=== PATIENT | male | born 1940 | race Caucasian/White ===

== ENCOUNTER 2016-04-22 17:45 | Inpatient (IN) | payer OTHER ==
[2016-04-22 20:03] LABS: MANUAL DIFF NEEDED? NO
[2016-04-22 20:06] LABS: BASO% 0.6 % (0.0-0.8); EOS% 1.9 % (0.0-10.0); HEMATOCRIT 39.7 % (42.0-52.0); HEMOGLOBIN 12.6 g/dL (14.0-18.0); IMM GRAN# 0.02 X1000 (0.0-0.04); IMM GRAN% 0.2 % (0.0-0.5); LYMPH# 1.86 X1000 (1.2-3.4); LYMPH% 17.9 % (20.5-51.1); MCH 27.2 PG (27-31); MCHC 31.7 g/dL (33-37); MCV 85.7 FL (81-99); MONO# 0.84 X1000 (0.11-0.59); MONO% 8.1 % (1.7-9.3); MPV 10.7 FL (7.4-10.4); NEUT% 71.3 % (42.2-75.2); PLT 233 X1000 (130-400); RBC 4.63 XMIL (4.7-6.1)
[2016-04-22 20:14] LABS: INR 1.01; PROTIME 10.7 Seconds (9.2-11.7)
[2016-04-22 20:31] LABS: ALBUMIN 3.5 g/dL (3.5-5.0); CALCIUM 8.1 mg/dL (8.8-10.2); MAGNESIUM 1.8 mg/dL (1.5-2.7); POTASSIUM 4.5 mmol/L (3.5-5.1); TOTAL BILIRUBIN 0.43 mg/dL (0.20-1.00); TOTAL PROTEIN 6.5 g/dL (6.3-8.3)
[2016-04-22] MEDS ORDERED: LASIX IV ONE (20:42)
[2016-04-22] MEDS ORDERED: PHENERGAN WITH CODEINE LIQUID PO ONE (20:47)
[2016-04-22] MEDS ORDERED: ALBUTEROL NEB INH ONE (20:47)
--- NOTE | 2016-04-22 20:50 | PROVIDER DOCUMENTATION ---
HPI-Respiratory General <Brenden Jarquin - Last Filed: 04/22/16 21:12> - General Source: patient - History of Present Illness-Resp Quality of Pain: reports: none Severity in ED: reports: mild Onset/Duration: reports: 24 hours ago Timing: reports: still present Cough Quality/Degree: reports: moderate, dry cough Current Respiratory Medication Therapy: Initiated see nurses note Associated Symptoms: reports: cough, shortness of breath Similar Symptoms Previously?: No Recently seen or treated by another doctor?: No <Valarie Matthew - Last Filed: 04/22/16 22:14> - General Chief Complaint: Shortness of Breath Stated Complaint: POSS BRONCHITIS Time Seen by Provider: 04/22/16 17:55 Allergies/Adverse Reactions: Patient Allergies Allergy/AdvReac Type Severity Reaction Status Date / Time influenza virus vaccine, Allergy Unknown unk Verified 04/22/16 20:42 specific [Influenza Virus Vacc,Specific] Home Medications: Home Medication List Medication Instructions Recorded Confirmed Last Taken Type Amlodipine Besylate 10 mg PO DAILY 11/29/14 04/22/16 04/22/16 History Bupropion S.r. [Wellbutrin Sr] 150 mg PO BID 11/29/14 04/22/16 04/22/16 08:00 History Doxycycline Hyclate 100 mg PO BID 11/29/14 04/22/16 04/22/16 08:00 History Glimepiride 2 mg PO QHS 11/29/14 04/22/16 04/21/16 History Isosorbide Mononitrate [Isosorbide 60 mg PO DAILY 11/29/14 04/22/16 04/22/16 History Mononitrate ER] Metoprolol [Lopressor] 50 mg PO BID 11/29/14 04/22/16 04/22/16 08:00 History Pantoprazole Sodium [Protonix] 40 mg PO QHS 11/29/14 04/22/16 04/21/16 History Promethazine [Phenergan] 25 mg PO Q6H PRN PRN 11/29/14 04/22/16 12/05/14 History Sertraline [Zoloft] 100 mg PO QHS 11/29/14 04/22/16 04/21/16 History Ondansetron Odt [Zofran 4 mg Odt] 4 mg PO Q6H PRN PRN #12 tablet 12/06/14 Unknown Rx Aspirin [Aspirin EC] 81 mg PO QHS 04/22/16 04/22/16 04/21/16 History Fluticasone/[place] 100/50 INH 1 puff INH RTBID PRN 04/22/16 04/22/16 04/22/16 History [Advair 100/50 Diskus] Furosemide 40 mg PO QAM 04/22/16 04/22/16 04/22/16 History Hydrocodone/Acetaminophen [Lortab 5 ml PO BID PRN PRN 04/22/16 04/22/16 08:00 History 10 mg-300 mg/15 ml Elxr] Lisinopril 10 mg PO QHS 04/22/16 04/22/16 04/21/16 History [place]-3/Dha/Epa/Ala/Vitamin D3 1 each PO QAM 04/22/16 04/22/16 04/22/16 History [[place]-3 Gummies] - History of Present Illness-Resp Nature of Presenting Problem: 76 year old M presents to the ED with a cc of cough and shortness of breath. PT states that he states that chest hurts with coughing. PT states also for a month he has had leg swelling. PT states that leg swelling began after feeling some palpitations. Pt states that he has been on Lasix but is not helping. PT states that he has a appointment with his heart doctor on Wednesday. (Valarie Matthew) Review of Systems - Adult - REVIEW OF SYSTEMS - ADULT Constitutional: denies: chills, fever Eyes: reports: no symptoms reported Ears, Nose, Mouth & Throat: reports: no symptoms reported Cardiovascular: denies: chest pain, palpitations Respiratory: reports: cough, shortness of breath Gastrointestinal: denies: diarrhea, nausea, vomiting Genitourinary: reports: no symptoms reported Musculoskeletal: reports: no symptoms reported Integumentary: reports: no symptoms reported Neurological: reports: no symptoms reported Psychiatric: reports: no symptoms reported Endocrine: reports: no symptoms reported Hematologic/Lymphatic: reports: no symptoms reported Allergic/Immunologic: reports: no symptoms reported All Other Systems: Reviewed and Negative <Valarie Matthew - Last Filed: 04/22/16 22:14> Past History - Adult - PAST MEDICAL HISTORY-ADULT Review of Records: reports: Nursing Assessment Review, Medications Reviewed Major Childhood Illnesses: reports: denies history Cardiovascular: reports: CAD, HTN, heart valve problem, hyperlipidemia Genitourinary: reports: cancer (renal), kidney disease Psychiatric: reports: depression Endocrine/Immune: reports: Diabetes Other Conditions: reports: other (amyloidosis) - PRIOR SURGERIES/PROCEDURES Surgical/Procedure History: reports: CABG, cholecystectomy, other (nephrectomy; cataract removal) - IMMUNIZATION STATUS Childhood Immunizations: See Nurse Assessment Flu Vaccine: See Nurse Assessment - SOCIAL HISTORY Smoking: quit greater than 1 year Substance Use: none/never Alcohol Use Frequency: never <Valarie Matthew - Last Filed: 04/22/16 22:14> Physical Exam-General - PHYSICAL EXAM-ADULT Initial Vital Signs Reviewed: Yes - CONSTITUTIONAL General Appearance: appears well, alert, no apparent distress - RESPIRATORY Respiratory: chest non-tender, normal breath sounds, crackles - CARDIOVASCULAR Cardiovascular: normal peripheral pulses, regular rate, rhythm, no edema, systolic murmur - GASTROINTESTINAL (ABDOMEN) Abdominal Exam: normal bowel sounds, non tender, soft - MUSCULOSKELETAL Extremity: pedal edema (3+ bilaterally to knee) - SKIN Integumentary: normal color, normal turgor, warm/dry - PSYCHIATRIC Psych/Mental Status: normal mood/affect, normal thought content, normal thought process, oriented x 3 <Valarie Matthew - Last Filed: 04/22/16 22:14> Progress <Brenden Jarquin - Last Filed: 04/22/16 21:12> - EKG 1 Time of EKG reading by physician:: 17:53 EKG Read and Signed by:: Brenden Jarquin EKG Interpretation (*Must complete 3 of following elements*): Abnormal Rate: 85 Rhythm: sinus rhythm with 1st degree AV block QRS: RBB (incomplete) - XRAY 1 XRAY Study: Chest Impression: Abnormal XRAY Interpretation: increased fullness of right perihilar area: Dr. Jarquin-ER MD - CONSULTS/PCP/HOSPITALIST Notification #1 *Consult/PCP/Hospitalist*: Dr. Rivera- Hospitalist Time Discussed: 20:51 Consult Disposition: Will see in ED, Admit <Valarie Matthew - Last Filed: 04/22/16 22:14> - PLAN OF CARE/RESULTS Progress/Plan/Lab Results: plan of care: imaging, labs, medications, EKG Orders Category Date Time Status Cardiac Monitoring DIRECTED Care 04/22/16 19:25 Active Saline Loc NOW Care 04/22/16 19:25 Active CHEST-2 VIEWS [RAD] Stat Exams 04/22/16 19:25 Taken CBC WITH ELECTRONIC DIFF [HEME] Stat Lab 04/22/16 19:50 Completed CK PROFILE [SP CHEM] Stat Lab 04/22/16 19:50 Completed COMPREHENSIVE METABOLIC PANEL [CHEM] Stat Lab 04/22/16 19:50 Completed D-DIMER [CHEM] Stat Lab 04/22/16 19:50 Completed MAGNESIUM [CHEM] Stat Lab 04/22/16 19:50 Completed PRO B-NATRIURETIC PEPTIDE Stat Lab 04/22/16 19:50 Completed PROTIME WITH INR [COAG] Stat Lab 04/22/16 19:50 Completed PTT [COAG] Stat Lab 04/22/16 19:50 Completed TROPONIN T Stat Lab 04/22/16 19:50 Completed Albuterol [Albuterol Neb] Med 04/22/16 20:47 Discontinued 2.5 mg INH NOW ONE Codeine/Promethazine [Phenergan with Codeine Liquid] Med 04/22/16 20:47 Discontinued 10 ml PO NOW ONE Furosemide [Lasix] Med 04/22/16 20:42 Discontinued 40 mg IV NOW ONE Aerosol Treatments Routine Oth 04/22/16 20:47 Active Aerosol Treatments Stat Oth 04/22/16 20:47 Active EKG [EKG] Stat Ther 04/22/16 17:53 Ordered Laboratory Tests 04/22/16 04/22/16 04/22/16 19:50 19:50 19:50 WBC 10.38 RBC 4.63 L Hgb 12.6 L Hct 39.7 L MCV 85.7 MCH 27.2 MCHC 31.7 L RDW Std Deviation 14.6 H Plt Count 233 MPV 10.7 H Immature Gran % (Auto) 0.2 Neut % (Auto) 71.3 Lymph % (Auto) 17.9 L [place] % (Auto) 8.1 Eos % (Auto) 1.9 Baso % (Auto) 0.6 Immature Gran # (Auto) 0.02 Neut # (Auto) 7.40 H Lymph # (Auto) 1.86 [place] # (Auto) 0.84 H Eos # (Auto) 0.20 Baso # (Auto) 0.06 PT INR PTT (Actin FS) D-Dimer 3.74 H Sodium 138 Potassium 4.5 Chloride 101 Carbon Dioxide 23 L Anion Gap 14 BUN 29 H Creatinine 2.1 H Estimated GFR/1.73 m2 31 BUN/Creatinine Ratio 14 Glucose 120 H Calculated Osmolality 283 Calcium 8.1 L Magnesium 1.8 Total Bilirubin 0.43 AST 18 ALT 12 Alkaline Phosphatase 69 Creatine Kinase 194 Troponin T Lpw-E-Eeexjcavnmu Pept Total Protein 6.5 Albumin 3.5 Globulin 3.0 Albumin/Globulin Ratio 1.2 04/22/16 04/22/16 04/22/16 19:50 19:50 19:50 WBC RBC Hgb Hct MCV MCH MCHC RDW Std Deviation Plt Count MPV Immature Gran % (Auto) Neut % (Auto) Lymph % (Auto) [place] % (Auto) Eos % (Auto) Baso % (Auto) Immature Gran # (Auto) Neut # (Auto) Lymph # (Auto) [place] # (Auto) Eos # (Auto) Baso # (Auto) PT 10.7 INR 1.01 PTT (Actin FS) 25.0 D-Dimer Sodium Potassium Chloride Carbon Dioxide Anion Gap BUN Creatinine Estimated GFR/1.73 m2 BUN/Creatinine Ratio Glucose Calculated Osmolality Calcium Magnesium Total Bilirubin AST ALT Alkaline Phosphatase Creatine Kinase Troponin T < 0.010 Etn-C-Lnupmypljlh Pept 88460 H Total Protein Albumin Globulin Albumin/Globulin Ratio Vital Signs - 24 hr 04/22/16 04/22/16 04/22/16 17:48 20:30 20:33 Temperature 98.5 F Pulse Rate 86 90 91 H Respiratory 18 20 20 Rate Blood Pressure 176/94 189/100 189/100 O2 Sat by Pulse 95 96 96 Oximetry Pt/family given results. Pt will be admitted to the hospitalist group. PT/ Family in agreement with plan of care. (Valarie Matthew) Departure - Departure Time of Disposition Order: 21:12 Certified Medical Emergency: Emergent <Brenden Jarquin - Last Filed: 04/22/16 21:12> <Valarie Matthew - Last Filed: 04/22/16 22:14> - Departure DIAGNOSIS: Congestive heart failure Qualifiers: Congestive heart failure type: unspecified congestive heart failure type Congestive heart failure chronicity: acute Qualified Code(s): I50.9 - Heart failure, unspecified Chronic kidney disease Qualifiers: Chronic kidney disease stage: unspecified stage Qualified Code(s): N18.9 - Chronic kidney disease, unspecified Disposition: ADMITTED INPATIENT 09 Condition: Fair Referrals: Tamika Ceron MD [Primary Care Provider] - Attestation - Scribe Verification/Attestation Scribe:: Valarie Matthew Acting as Scribe for:: Brenden Jarquin Scribe documention review:: This chart was documented by a scribe and accurately reflects the service the provider performed and the decisions made by the provider. <Valarie Matthew - Last Filed: 04/22/16 22:14> Physician Attestation - Physician Attestation I, the provider, attest to the following statement:: Brenden Jarquin Physician documentation Attestation:: This documentation recorded by the scribe accurately reflects the service I personally performed and the decisions made by me. <Valarie Matthew - Last Filed: 04/22/16 22:14>
--- NOTE | 2016-04-22 22:01 | HISTORY AND PHYSICAL ---
CHIEF COMPLAINT: Shortness of breath x2 weeks. HISTORY OF PRESENTING ILLNESS: This is a 76-year-old male with a history of hypertension, diabetes mellitus type 2, who presented to the emergency department with 2 week history of having shortness of breath. The patient states that even with just some mild movements he was getting winded. Over the past several days he seemed to be worsening and subsequently had come to the emergency department. In the ER, he was evaluated and he was somewhat dyspneic. He was given IV diuresis with Lasix and he had improvement. Due to his presenting symptoms, it was thought that he would need hospitalization for further management. At the time of my examination, he had denied any headaches, vision changes, nausea, vomiting, diarrhea, chest pain, hemoptysis, melena, or any weight changes, but complained of shortness of breath. PAST MEDICAL HISTORY: Coronary bypass. Right nephrectomy. Cholecystectomy. Back surgery. ALLERGIES: Flu vaccine. CURRENT MEDICATIONS: As listed in MAR. SOCIAL HISTORY: He is a former smoker. Admits to social alcohol use. Denies any illicit drug use. FAMILY HISTORY: No history of coronary disease. REVIEW OF SYSTEMS: [place] systems is listed as in HPI. Other systems negative. PHYSICAL EXAMINATION: GENERAL: Cooperative, friendly male. He is resting more comfortably now. VITAL SIGNS: Temperature 98.5 degrees, pulse 86, respiration 18, blood pressure 176/94. HEENT: Atraumatic, normocephalic. Extraocular movements intact. PERRLA. NECK: Supple. CHEST: Bibasilar rales. CARDIOVASCULAR: Regular rate and rhythm. ABDOMEN: Soft. Positive bowel sounds. EXTREMITIES: Trace edema. NEUROLOGIC: He is awake, alert, oriented x3. : No bladder distention. SKIN: Warm. LABORATORIES AND STUDIES: ProBNP 11,368. Sodium 138, potassium 4.5, chloride 101, CO2 is 23, BUN is 29, creatinine 2.1, glucose is 120. WBC 10.3, hemoglobin 12.6, hematocrit 39.7, platelets 233,000. ASSESSMENT: A 76-year-old male with a history of hypertension and diabetes mellitus type 2 who presented to the department with 2 weeks history of worsening shortness of breath. He is found to be in congestive heart failure. He will need hospitalization for further management. 1. Acute congestive heart failure exacerbation, unspecified. 2. Dyspnea with increased D-dimer. We will need to rule out pulmonary embolus. 3. Diabetes mellitus type 2. 4. Hypertension. 5. Suspected chronic kidney disease. PLAN: 1. We will admit patient to his cardiac intensive care. 2. Continue with gentle diuresis with Lasix. 3. We will check echocardiogram. 4. We will consult his event marketing intern. 5. We will schedule patient for ventilation/perfusion scan. 6. We will monitor blood glucose and put patient on sliding scale insulin regimen. 7. Monitor blood pressure. Resume antihypertensive agents. 8. We will monitor renal function. 9. The patient on deep venous thrombosis prophylaxis with Sequential Compression Devices and heparin. 10. We will continue to follow and reassess.
[2016-04-22] MEDS ORDERED: HYDROCODONE/APAP 7.5-325/15 ML PO PRN (23:42)
[2016-04-22] MEDS ORDERED: ZOFRAN IV PRN (23:42)
[2016-04-23] MEDS: LASIX IV SCH ×3 (02:04→23:51)
[2016-04-23 05:26] LABS: MANUAL DIFF NEEDED? NO
[2016-04-23 05:29] LABS: BASO% 0.8 % (0.0-0.8); EOS# 0.16 X1000 (0.0-0.7); EOS% 2.2 % (0.0-10.0); HEMOGLOBIN 10.8 g/dL (14.0-18.0); LYMPH# 1.82 X1000 (1.2-3.4); LYMPH% 25.6 % (20.5-51.1); MCH 27.1 PG (27-31); MCHC 31.8 g/dL (33-37); MCV 85.4 FL (81-99); MONO# 0.64 X1000 (0.11-0.59); NEUT% 62.4 % (42.2-75.2); PLT 195 X1000 (130-400); RBC 3.98 XMIL (4.7-6.1)
--- NOTE | 2016-04-23 05:52 | EKG Report ---
Test Performed on : 04/22/2016 5:53:51 PM Test Reason : CP/reordered Blood Pressure : / mmHG Vent. Rate : 085 BPM Atrial Rate : 085 BPM P-R Int : 240 ms QRS Dur : 110 ms QT Int : 378 ms P-R-T Axes : 033 -07 114 degrees QTc Int : 449 ms Sinus rhythm. with 1st degree AV block. Incomplete left bundle branch block Minimal voltage criteria for LVH, may be normal variant T wave abnormality, consider lateral ischemia Abnormal ECG When compared with ECG of 30-DEC-2014 23:03, Criteria for Anterior infarct are no longer present Criteria for Inferior infarct are no longer present Unconfirmed Result
[2016-04-23 05:53] LABS: CALCIUM 7.9 mg/dL (8.8-10.2); POTASSIUM 4.3 mmol/L (3.5-5.1)
--- NOTE | 2016-04-23 06:39 | Diag Imaging Result Document ---
PROCEDURE NAME: CHEST-2 VIEWS - 04/22/2016 FRONTAL AND LATERAL CHEST, TWO VIEWS: COMPARISON: Compared to 02/26/2016. FINDINGS: Sternal wires and surgical clips are present. The heart is enlarged. There are increased interstitial markings consistent with pulmonary edema. No pleural effusions. No consolidation. IMPRESSION: Cardiomegaly with pulmonary edema.
[2016-04-23] MEDS ORDERED: IMDUR PO SCH (09:00)
[2016-04-23] MEDS: WELLBUTRIN SR PO SCH ×2 (10:12→20:10)
[2016-04-23] MEDS: LOPRESSOR PO SCH ×2 (10:12→20:10)
[2016-04-23] MEDS: NORVASC PO SCH (10:12)
[2016-04-23] MEDS: DOXYCYCLINE PO SCH ×2 (10:13→20:10)
[2016-04-23] MEDS: HEPARIN SUBQ SCH ×2 (10:13→20:10)
--- NOTE | 2016-04-23 10:51 | CONSULTATION ---
DATE OF CONSULTATION: 04/23/2016 INDICATION: Shortness of breath, congestive heart failure. HISTORY OF PRESENT ILLNESS: Mr. Garcia is a 76-year-old, white male whom I follow in clinic. He presented for complaints of at least 1 month of shortness of breath that has been steadily worsening. He does at times have issues with shortness of breath at rest. In addition, he has had a prodigious amount of cough that has been relatively dry. He reports some mild chest discomfort that is occurring with episodic cough as well as deep breaths. There was no exertional chest discomfort. He has not had any fevers. He had some episodes of heart racing over the last month or so. He has had some issues with orthopnea as well. There has been no medication changes. He has had no changes in his diet recently but he certainly seems to have issues with high sodium intake in his diet. He reports lower extremity edema that has been occurring over the last month and certainly worsening over the last week or so. PAST MEDICAL HISTORY: 1. Significant for coronary artery disease with previous coronary bypass. I do not have records of this presently. 2. History of a right-sided nephrectomy with chronic kidney disease. Presently, his GFR is at 32, giving him a borderline stage III/stage IV CKD. 3. Significant hypertension. 4. Diabetes mellitus. 5. Reflux disease. SOCIAL HISTORY: Significant for previous smoking, not current. Occasional alcohol use. He is . His is present in the room. FAMILY HISTORY: Significant for hypertension. REVIEW OF SYSTEMS: A 12 system review of systems is negative except for those things mentioned in the HPI. PHYSICAL EXAMINATION: Vital Signs: He is afebrile. Heart rate of 86. His blood pressure is 161/72 and during this admission, his systolics have been in the 160s-190s. His Is and Os thus far have been -1655 mL. Generally: No acute distress. HEENT: Oropharynx is moist. Poor dentition. Eye examination shows pink conjunctivae and white sclerae. Neck: Examination shows no obvious thyromegaly or thyroid tenderness. Cardiovascular: He is in a regular rate and rhythm. He has no obvious murmurs. He has no S3 present. He has 1+ bilateral lower extremity edema. Chest: Examination has mild rales in the bilateral bases. No increased work of breathing. Abdomen: Soft, nontender, nondistended. He has no obvious organomegaly. Skin Examination: Warm and dry throughout without any rashes. Neurological: He is moving all extremities well. Cranial nerves 2-12 are intact without any sensation deficits. Psychiatric: Alert, oriented, pleasant. He has normal mood and affect. PERTINENT DATA: His EKG shows sinus rhythm, 85 beats per minute. He has a first-degree AV block. He also has an incomplete left bundle branch block present. His chest x-ray demonstrates cardiomegaly with evidence for pulmonary edema. His last EKG was in October of 2014. This showed a dilated left ventricle at 6.1 cm, borderline mild left ventricular hypertrophy, mild left atrial enlargement. He had a mild degree of aortic stenosis with a mean gradient of 24 mmHg and a valve area of 1.6. His laboratory data shows a white count of 7.1, his hematocrit is 34, his platelet count is 195,000. His D-dimer was 3.7 with an INR of 1. His sodium is 139, potassium is 4.3, BUN 29, creatinine is 2. This appears roughly at his baseline over the last few years. ASSESSMENT: 1. Congestive heart failure, likely diastolic based on previous echocardiograms but his present echocardiogram is currently pending. 2. History of mild aortic stenosis. 3. Chronic kidney disease, borderline stage III/IV. 4. Diabetes mellitus. 5. Poor control of hypertension. PLAN: We will wait on the echocardiogram results as well as the V/Q scan. Presently, we will continue with diuresis and adjust his blood pressure medications from isosorbide mononitrate to . We will place him on this at 20 mg t.i.d. Continue with adjustments of blood pressure medicines over the course of the hospitalization. He has had some heart racing over the last month or so. We will need to follow him on telemetry and if he does not have any episodes of arrhythmias to identify the etiology, we will likely need an outpatient heart monitor. He will likely need myocardial perfusion imaging given this episode of heart failure that he is going through and his history of coronary disease.
--- NOTE | 2016-04-23 14:13 | Diag Imaging Result Document ---
PROCEDURE NAME: LUNG SCAN / VQ - 04/22/2016 VENTILATION-PERFUSION NUCLEAR MEDICINE LUNG SCAN: FINDINGS: 40.5 mCi of DTPA were used for the ventilation images. 5.4 mCi of MAA were injected for the perfusion images. Comparison is made to a recent plain film from 04/22/2016. There are no wedge-shaped perfusion defects. No ventilation-perfusion mismatches. IMPRESSION: Low probability for pulmonary embolus. -4
[2016-04-23] MEDS: ISORDIL PO SCH ×2 (14:16→17:10)
--- NOTE | 2016-04-23 17:49 | PROGRESS NOTE ---
DATE: 04/23/2016 SUBJECTIVE: Patient was admitted yesterday by me, had a lung V/Q scan, which was low probability for pulmonary embolus. He feels much better. Breathing much better. Cardiology involved. Appears to have congestive heart failure, likely diastolic based. Previous echocardiogram but present echocardiograms is pending. I think we had it done today. Continued a little bit of diuresis. He has responded clinically. I think changing his medication from isosorbide mononitrate to another nitrate 20 mg t.i.d. will continue diuresis. Review his echocardiogram. EKG on presentation, the patient was in 1st degree AV block, could be sinus rhythm, incomplete left bundle branch block. Nonspecific T-waves anterolateral. EXAMINATION TODAY: General: [place] much better. Breathing comfortably. Vital signs: Temperature 97.6 degrees, pulse 65, respirations 16, blood pressure 115/70. HEENT: Pupils are equal and round. Lungs: Are clear in all lung ray. Cardiovascular: Regular rhythm and rate without murmur or S3. Abdomen soft. Skin is warm and dry. Urine output looks like it was 2 from yesterday. LABORATORY: Reviewed lab from yesterday. Hematocrit was stable. Electrolytes look okay. Creatinine is 2. ASSESSMENT AND PLAN: 1. Acute congestive heart failure exacerbation. Likely it is diastolic. Echo is pending. Seems to be responding to diuresis. Cardiology has suggested some of the medicines, and right now he is on isosorbide dinitrate 20 mg t.i.d., Norvasc 10 mg a day and Lopressor 50 mg b.i.d., getting Lasix 40 mg intravenously q.12 hours, lisinopril 10 mg a day. 2. Ventilation/perfusion scan was negative. 3. Diabetes mellitus type 2. Continue to follow pattern sugars. 4. Hypertension. 5. Suspect some chronic kidney disease. Check electrolytes again in the morning. Note the creatinine 2. Check magnesium as well.
--- NOTE | 2016-04-23 18:24 | ECHO REPORT ---
ORDER DATE: 04/23/2016 INTERPRETING PHYSICIAN: Dr. Ruvalcaba REQUESTING PHYSICIAN: CLINICAL INDICATIONS: CHF. M-MODE MEASUREMENTS: Right ventricle: 4.0 cm. Left ventricle end diastole: 5.4 cm. Left ventricle end systole: 4.4 cm. Posterior wall: 1.2 cm. Interventricular septum: 1.3 cm. Left atrium: 5.0 cm. Aortic root: 3.4 cm. SUMMARY OF 2-DIMENSIONAL IMAGING: The left ventricle function appears to be preserved. Ejection fraction estimated at 61%. The study is technically difficult. Parasternal views are very limited. Also, the visualization of the atria is very difficult. The right ventricle appears to be moderately to significantly enlarged. It shows good function. The mitral annulus shows moderate calcification. Color flow mapping of the mitral valve indicates a mild to moderate degree of regurgitation. Pulse wave Doppler of mitral inflow shows "normal" E/A ratio. Tissue Doppler of septal and lateral mitral annulus averages 6.5 cm per second. The aortic valve is calcified. It shows restricted opening. Color flow mapping indicates a mild degree of regurgitation. Continuous wave Doppler across the outflow tract of the left ventricle shows a maximum gradient of 56 mmHg, mean gradient 32 mmHg. The valve area is grossly estimated at 1.0 cm square. That suggests moderate bordering into severe aortic stenosis. The pulmonic valve shows a mild degree of regurgitation. The tricuspid valve shows a mild to moderate degree of regurgitation. The inferior vena cava is not dilated. Pulmonary pressure is estimated at 47 mmHg. There is no definite pericardial effusion, masses or thrombus. IMPRESSION: In summary, this study shows: 1. Normal left ventricular systolic function. 2. Moderate to severe aortic stenosis. Mean gradient is 32 mmHg. Valve area by continuous wave Doppler was 1.0 cm square, by planimetry is about 1.4 cm square. 3. Moderately dilated left atrium. 4. Moderately enlarged right ventricle. 6. Pulmonary systolic pressure estimated at 47 mmHg. 7. There is also a moderate degree of mitral regurgitation. Clinical correlation recommended.
[2016-04-23] MEDS ORDERED: ZOLOFT PO SCH (21:00)
[2016-04-23] MEDS ORDERED: PROTONIX PO SCH (21:00)
[2016-04-23] MEDS ORDERED: AMARYL PO SCH (21:00)
[2016-04-23] MEDS ORDERED: PRINIVIL PO SCH (21:00)
[2016-04-23] MEDS ORDERED: ASPIRIN EC PO SCH (21:00)
[2016-04-24 05:56] LABS: CALCIUM 7.9 mg/dL (8.8-10.2); MAGNESIUM 1.9 mg/dL (1.5-2.7)
--- NOTE | 2016-04-24 07:50 | Diag Imaging Result Document ---
PROCEDURE NAME: CHEST-PORTABLE - 04/24/2016 AP PORTABLE CHEST ERECT AT 0600 HOURS: FINDINGS: The heart size is at the upper limits of normal. There has been some clearing of the lung bases and atelectasis of the right middle lobe since the previous study of 04/22/2016. There is less apparent interstitial edema. IMPRESSION: Improved pulmonary edema and atelectasis.
--- NOTE | 2016-04-24 07:50 | PROGRESS NOTE ---
DATE: 04/24/2016 SUBJECTIVE: Mr. Garcia feels much better and was reading a book. Breathing comfortably. Feels like he is back down to where he need to be. Temp 98 degrees, pulse 66, respirations 127/62, pupils are equal and round. CVP less than 6 cm.Lungs: Clear in all lung ray. Cardiovascular: Regular rhythm and rate without murmur or S3. Abdomen: Soft. Skin is warm and dry. Weight 210 pounds. Urine output is 1470. LAB: Reviewed from yesterday, chemistries this morning, sodium 141, potassium 4.0, chloride 102, bicarb 24, BUN 35, creatinine 2.3. Creatinine on presentation was 2.1 and is 2.3 now. I see where his creatinine stays around 1.9 to 2.3. I think he has some chronic kidney disease. ASSESSMENT AND PLAN: 1. Acute congestive heart failure exacerbation likely diastolic. Admitting echo is pending. Cardiology following. Medications adjusted. He is on isosorbide dinitrate 20 mg b.i.d., Norvasc 10 mg a day. Lopressor 50 mg b.i.d. 2. Ventilation perfusion was negative. 3. Diabetes mellitus type 2. Sugars appear controlled. 4. Hypertension. Blood pressure may adjust a little bit. Average systolic is around 145 to 150. 5. Suspect chronic kidney disease. Creatinine around 2.3. Will probably need followup with Nephrology. 6. Continue present medications: Isosorbide dinitrate 20 mg t.i.d., Wellbutrin 150 mg b.i.d., amlodipine 10 mg daily, metoprolol 50 mg b.i.d., Lasix 40 mg IV q.12 right now, heparin 5000 units subcutaneous q.12, doxycycline 100 mg p.o. b.i.d., Zoloft 100 mg at bedtime, Protonix 40 mg at bedtime, lisinopril 10 mg at bedtime, aspirin 81 mg at bedtime, Amaryl 2 mg at bedtime.
[2016-04-24] MEDS: NORVASC PO SCH (08:10)
[2016-04-24] MEDS: HEPARIN SUBQ SCH (08:10)
[2016-04-24] MEDS: LOPRESSOR PO SCH (08:10)
[2016-04-24] MEDS: ISORDIL PO SCH ×2 (08:10→12:13)
[2016-04-24] MEDS: WELLBUTRIN SR PO SCH (08:10)
[2016-04-24] MEDS: DOXYCYCLINE PO SCH (08:10)
[2016-04-24] MEDS: LASIX IV SCH ×2 (08:10→09:49)
--- NOTE | 2016-04-24 08:45 | PROGRESS NOTE ---
DATE: 04/24/2016 SUBJECTIVE: Mr. Garcia says his breathing is significantly better this morning. OBJECTIVE: Vital Signs: On physical examination, he is afebrile. Heart rate is 67, blood pressure 151/72. His input and output have been negative around 2.1 L over the course of the hospitalization. General: Generally in no acute distress. Cardiovascular: He sounds to be in a regular rate and rhythm. He does have a 2/6 systolic murmur at the right upper sternal border. Chest: His chest exam sounds clear. No increased work of breathing. Abdomen: Soft, nontender. No obvious organomegaly. PERTINENT DATA: His echo demonstrates an EF of 61. He had borderline moderate to severe aortic stenosis. He had a valve area estimated at 1 cm2. Planimetry showed it to be 1.4. Mean gradient was 32. He had a moderate degree of mitral regurgitation. His sodium was 141, potassium 4, BUN 35, creatinine 2.3. Magnesium level 1.9. ASSESSMENT: 1. Moderate to severe aortic stenosis. 2. Congestive heart failure. 3. Chronic kidney disease. PLAN: Patient seems to be doing much better today. I would likely plan on sending him out on an escalated dose of Lasix, could consider either 60 mg once a day or 40 mg b.i.d. We will see him in the clinic in a few weeks, and consider referral for left and right heart catheterization to further evaluate his borderline moderate to severe aortic stenosis. He could be becoming symptomatic from that. In addition, we will need to arrange for an outpatient BEBETO, as he has had some issues with palpitations and we need to rule out the possibility of atrial fibrillation.
[2016-04-24 11:05] VITALS: BP 124/62
--- NOTE | 2016-04-24 21:20 | DISCHARGE SUMMARY ---
ADMISSION DATE: 04/22/2016 DISCHARGE DATE: 04/24/2016 CONSULTATIONS: Dae Monge M.D., Cardiology. PERTINENT PROCEDURES: 1. V/Q scan showed low probability for pulmonary embolism. 2. Echocardiogram showed moderate to severe aortic stenosis. Mean gradient is 32 mmHg. Valve area continuous wave Doppler was 1.0 cm2. By planimetry it is 1.4 cm2. Pulmonary systolic pressure estimated at 47 mmHg. Moderate degree of mitral regurgitation. Normal LV systolic function. EF was estimated at around 61%. DISCHARGE DIAGNOSES: 1. Moderate to severe aortic stenosis. The patient will follow up with Cardiology for possible left-right heart catheterization. 2. Congestive heart failure. Patient's diuretics will be increased to 40 mg p.o. b.i.d. 3. Acute congestive heart failure exacerbation. The patient was switched from isosorbide mononitrate to isosorbide dinitrate by Cardiology. Continue on Norvasc as well as Lopressor and his Prinivil. V/Q scan was negative for any pulmonary embolus. 4. Diabetes mellitus. Continue with home medications. 5. Hypertension. Continue home medications. 6. Chronic kidney disease. Suspected to be chronic. Creatinine was 2.0-2.3 throughout admission which seems to be around the patient's baseline. No reported history of chronic kidney disease. We will give him a referral for Nephrology. HOSPITAL COURSE: Mr. Garcia is a 76-year-old, male with a past medical history of hypertension, diabetes mellitus type 2 who presented to the ED with a 2 week history of having shortness of breath. The patient states that even with just some mild movement he was getting winded. Over the past several days he seemed to be worsening and subsequently came to the emergency department. In the ED he was evaluated and found to be somewhat dyspneic. He was given IV diuresis with Lasix. He did have some improvement. The patient was admitted to the [facility] where he was continued to be diuresed with a Cardiology consultation. The patient did undergo a V/Q scan that was negative for PE. He did have an echocardiogram that did show severe aortic stenosis. His isosorbide mononitrate was changed to isosorbide dinitrate 20 mg t.i.d. Patient also reported some palpitations. He was closely monitored on telemetry for any episodes of arrhythmias. The patient seems to be doing much better. He was evaluated to see if he qualifies for home O2. He did not meet criteria for home O2. The patient is being discharged on an escalated dose of Lasix 40 mg p.o. b.i.d. Cardiology will follow up with him in the clinic in a few weeks and consider referral for a left and right heart catheterization to further evaluate his borderline moderate to severe aortic stenosis. They stated that he could be becoming symptomatic from that. In addition, they are arranging for an outpatient cardiac event monitor since he had some issues with palpitations. They want to rule out the possibility of any atrial fibrillation. VITAL SIGNS AT TIME OF DISCHARGE: Temperature is 98.1 degrees, heart rate 67, respirations 20, blood pressure 124/62, O2 is 96% on room air. DISCHARGE MEDICATIONS: 1. Phenergan 25 mg p.o. q.6 hours p.r.n. 2. Norvasc 10 mg p.o. daily. 3. Doxycycline 100 mg p.o. b.i.d. 4. 2 mg p.o. at bedtime. 5. Lopressor 50 mg p.o. b.i.d. 6. Protonix 40 mg p.o. at bedtime. 7. Wellbutrin XR 150 mg p.o. b.i.d. 8. Zoloft 100 mg p.o. at bedtime. 9. Advair Diskus 150, 1 puff inhaled RT b.i.d. p.r.n. 10. Lortab 10/300 mg, 15 mL elixir, 5 mL p.o. b.i.d. p.r.n. 11. Aspirin 81 mg p.o. at bedtime. 12. Lisinopril 10 mg p.o. at bedtime. 13. [place]-3 Gummies, 1 each p.o. q.a.m. 14. Zofran ODT 4 mg p.o. q.6 hours p.r.n. 15. Isordil 20 mg p.o. t.i.d. 16. Lasix 40 mg p.o. b.i.d. DISCHARGE DIET: Diabetic. FOLLOWUP: 1. Patient is being discharged home. 2. He will follow up with his Primary Care Physician within 1 week, Dr. Tamika Ceron, as well as Dr. Dae Monge within a month to consider a left right heart catheterization to monitor any escalation of his aortic stenosis. He will also be receiving an event monitor in the mail per Cardiology. 3. He can follow up with Dr. Parry for his suspected chronic kidney disease. 4. The patient can return to the ED for any worsening of symptoms. DISCHARGE TIME: Greater than 30 minutes. Dictated by LEE Patino for Spencer Fulton MD
--- NOTE | 2016-04-24 22:36 | DISCHARGE SUMMARY ---
ADMISSION DATE: 04/23/2016 DISCHARGE DATE: 04/24/2016 HOSPITAL COURSE: This is a 76-year-old male with history of hypertension, diabetes mellitus type 2 presented to the emergency room with 2-week history of having shortness of breath. The patient states that even just some mild movement and exertion he was getting very winded. Past several days he seemed to be worsening subsequently had to come to the emergency department. The emergency room was evaluated, somewhat dyspneic, given IV diuresis and Lasix and had some improvement and was admitted for further management. PAST MEDICAL HISTORY: 1. Status post coronary artery bypass grafting. 2. Right nephrectomy. 3. Cholecystectomy. 4. Back surgeries in the past. He continued to show improvement. Cardiology was called. He had a V/Q scan done on 04/22/2016 that was unremarkable. Low probability for pulmonary embolus. Echocardiogram was done, showed normal left ventricular systolic function, moderate to severe aortic stenosis, mean gradient 32 mmHg. Valve area showed continuous wave. Doppler was 1 cm2 and by planimetry it was 1.4 cm2. Moderately dilated left atrium. Mildly enlarged right ventricle. Pulmonary systolic pressure about 47 mmHg, there is also moderate degree of mitral regurgitation. Patient improved clinically. Chest x-ray showed good improvement, improved pulmonary edema and atelectasis, felt he could go home on 04/24/2016. DISCHARGE MEDICATIONS: Will have him on Norvasc 10 mg a day, aspirin 81 mg a day, Wellbutrin SR 150 mg b.i.d., doxycycline 100 mg p.o. b.i.d., Lasix 40 mg IV q.12, Amaryl 2 mg at bedtime, Isordil 20 mg p.o. t.i.d., Prinivil 10 mg at bedtime, metoprolol 50 mg b.i.d., Protonix 40 mg at bedtime, Zoloft 100 mg at bedtime. FOLLOWUP: With courier and primary care.
== END 2016-04-24 15:53 | disposition home or self-care (01) | DRG 291 ==
LOC: ED 17:45 → EDIPHOLD 04-23 01:09 → 3S 04-23 01:24
PROVIDERS: ATTEND Emergency Medicine
DX: I13.0 Hypertensive heart and chronic kidney disease with heart failure and stage 1 through stage 4 chronic kidney disease, or unspecified chronic kidney disease (principal); I50.33 Acute on chronic diastolic (congestive) heart failure; E11.22 Type 2 diabetes mellitus with diabetic chronic kidney disease; N18.3 Chronic kidney disease, stage 3 (moderate); I25.10 Atherosclerotic heart disease of native coronary artery without angina pectoris; E78.5 Hyperlipidemia, unspecified; F32.9 Major depressive disorder, single episode, unspecified; R79.1 Abnormal coagulation profile; K21.9 Gastro-esophageal reflux disease without esophagitis; I44.0 Atrioventricular block, first degree; I44.7 Left bundle-branch block, unspecified; I08.0 Rheumatic disorders of both mitral and aortic valves; Z85.528 Personal history of other malignant neoplasm of kidney; Z90.5 Acquired absence of kidney; Z87.891 Personal history of nicotine dependence; Z95.1 Presence of aortocoronary bypass graft; Z82.49 Family history of ischemic heart disease and other diseases of the circulatory system; Z79.899 Other long term (current) drug therapy; Z79.82 Long term (current) use of aspirin
CPT/HCPCS: 71010; 71020; 78582; 80048; 80053; 82550; 82948; 83735; 83880; 84484; 85025; 85379; 85610; 85730; 93005; 93306; 94640; 94761; 96374; A9539; A9540; J1644; J1940

== ENCOUNTER 2016-10-18 01:21 | Inpatient (IN) ==
[2016-10-18] MEDS ORDERED: ASPIRIN PO STA (01:23)
[2016-10-18] MEDS ORDERED: LASIX IV ONE (01:37)
[2016-10-18] MEDS ORDERED: NITROGLYCERIN TOP ONE (01:37)
[2016-10-18 02:42] LABS: MANUAL DIFF NEEDED? NO
[2016-10-18 02:44] LABS: BASO% 0.7 % (0.0-0.8); EOS# 0.22 X1000 (0.0-0.7); EOS% 2.6 % (0.0-10.0); HEMATOCRIT 36.4 % (42.0-52.0); HEMOGLOBIN 11.7 g/dL (14.0-18.0); IMM GRAN# 0.02 X1000 (0.0-0.04); IMM GRAN% 0.2 % (0.0-0.5); LYMPH# 1.35 X1000 (1.2-3.4); LYMPH% 15.7 % (20.5-51.1); MCH 27.4 PG (27-31); MCHC 32.1 g/dL (33-37); MCV 85.2 FL (81-99); MPV 10.9 FL (7.4-10.4); NEUT% 73.8 % (42.2-75.2); PLT 240 X1000 (130-400); RBC 4.27 XMIL (4.7-6.1)
[2016-10-18 02:54] LABS: INR 1.01; PROTIME 10.6 Seconds (9.2-11.7); PTT 25.5 Seconds (22.0-36.0)
[2016-10-18 03:08] LABS: ALBUMIN 3.9 g/dL (3.5-5.0); CALCIUM 7.9 mg/dL (8.8-10.2); MAGNESIUM 2.1 mg/dL (1.5-2.7); POTASSIUM 4.3 mmol/L (3.5-5.1); TOTAL BILIRUBIN 0.29 mg/dL (0.20-1.00); TOTAL PROTEIN 6.9 g/dL (6.3-8.3)
--- NOTE | 2016-10-18 03:31 | PROVIDER DOCUMENTATION ---
This chart was entered by Severo Mccracken Scribe, acting as scribe for Brenden Jarquin MD. HPI-Respiratory General - General Stated Complaint: WHEEZING, SOB Time Seen by Provider: 10/18/16 01:25 Source: patient Allergies/Adverse Reactions: Patient Allergies Allergy/AdvReac Type Severity Reaction Status Date / Time influenza virus vaccine, Allergy Unknown unk Verified 10/18/16 02:36 specific [Influenza Virus Vacc,Specific] Home Medications: Home Medication List Medication Instructions Recorded Confirmed Last Taken Type Amlodipine Besylate 10 mg PO DAILY 11/29/14 10/18/16 10/17/16 History Bupropion S.r. [Wellbutrin Sr] 150 mg PO BID 11/29/14 10/18/16 10/17/16 History Doxycycline Hyclate 100 mg PO BID 11/29/14 10/18/16 10/17/16 History Glimepiride 2 mg PO QHS 11/29/14 10/18/16 10/17/16 History Metoprolol [Lopressor] 50 mg PO BID 11/29/14 10/18/16 10/17/16 History Pantoprazole Sodium [Protonix] 40 mg PO QHS 11/29/14 10/18/16 10/17/16 History Promethazine [Phenergan] 25 mg PO Q6H PRN PRN 11/29/14 10/18/16 10/17/16 History Sertraline [Zoloft] 100 mg PO QHS 11/29/14 10/18/16 10/17/16 History Ondansetron Odt [Zofran Odt] 4 mg PO Q6H PRN PRN #12 tablet 12/06/14 10/18/16 Rx Aspirin [Aspirin EC] 81 mg PO QHS 04/22/16 10/18/16 10/17/16 History Fluticasone/[place] 100/50 INH 1 puff INH RTBID PRN 04/22/16 10/18/16 10/17/16 History [Advair 100/50 Diskus] Hydrocodone/Acetaminophen [Lortab 5 ml PO BID PRN PRN 04/22/16 10/18/16 History 10 mg-300 mg/15 ml Elxr] Lisinopril 10 mg PO QHS 04/22/16 10/18/16 10/17/16 History [place]-3/Dha/Epa/Ala/Vitamin D3 1 each PO QAM 04/22/16 10/18/16 10/17/16 History [[place]-3 Gummies] Furosemide [Lasix] 40 mg PO BID #60 tablet 04/24/16 10/18/16 10/17/16 Rx Isosorbide Dinitrate [Isordil] 20 mg PO TID #84 tablet 04/24/16 10/18/16 Rx - History of Present Illness-Resp Nature of Presenting Problem: Pt is a 76 yowm who presents to ER with CC of SOB and orthopnea. Pt reports that he started to become SOB 3 days ago and has gradually become worse tonight when he was trying to go to sleep. Pt reports hx of CHF and sleeps with C-Pap. Pt also reports hx of renal cancer and quit smoking cigarettes in 1978. Pt states that his current sxs resemble that of his previous CHF exacerbations. Pt also states that he has gained 20 pounds in the past 3 months. Quality of Pain: reports: other (SOB) Severity in ED: reports: mild, moderate Onset/Duration: reports: 3 days ago Timing: reports: getting worse Cough Quality/Degree: reports: moderate, dry cough Associated Symptoms: reports: chest pain/soreness ("from breathing hard"), cough , hurts to breathe, shortness of breath, short of breath. denies: hyperventilating, lightheadedness, sinus pain, sore throat, sweaty, wheezing Similar Symptoms Previously?: Yes Recently seen or treated by another doctor?: Yes Review of Systems - Adult - REVIEW OF SYSTEMS - ADULT Constitutional: reports: weight gain (20 pounds in 3 months). denies: chills, fever, fatique, night sweats, weight loss Eyes: reports: no symptoms reported Ears, Nose, Mouth & Throat: reports: no symptoms reported Cardiovascular: reports: chest pain, orthopnea. denies: irregular heart rate, palpitations, poor circulation, syncope Respiratory: reports: cough, shortness of breath. denies: chronic cough, dyspnea on exertion, excessive sputum production, hemoptysis, pleurisy, wheezing Gastrointestinal: reports: no symptoms reported Genitourinary: reports: no symptoms reported Musculoskeletal: reports: no symptoms reported Integumentary: reports: no symptoms reported Neurological: reports: no symptoms reported Psychiatric: reports: no symptoms reported Endocrine: reports: no symptoms reported Hematologic/Lymphatic: reports: no symptoms reported Allergic/Immunologic: reports: no symptoms reported All Other Systems: Reviewed and Negative Past History - Adult - PAST MEDICAL HISTORY-ADULT Review of Records: reports: Nursing Assessment Review, Medications Reviewed Cardiovascular: reports: CAD, CHF, HTN, heart valve problem, hyperlipidemia Genitourinary: reports: cancer (renal), kidney disease Psychiatric: reports: depression Endocrine/Immune: reports: Diabetes Other Conditions: reports: other (amyloidosis) - PRIOR SURGERIES/PROCEDURES Surgical/Procedure History: reports: CABG, cholecystectomy, other (nephrectomy; cataract removal) - IMMUNIZATION STATUS Childhood Immunizations: See Nurse Assessment Flu Vaccine: See Nurse Assessment - SOCIAL HISTORY Smoking: quit greater than 1 year, cigarettes Physical Exam-General - PHYSICAL EXAM-ADULT Initial Vital Signs Reviewed: Yes - CONSTITUTIONAL General Appearance: appears well, alert, moderate distress - RESPIRATORY Respiratory: chest non-tender, lungs clear, no pleuratic chest pain, no respiratory distress, no accessory muscle use, crackles (mild, bilateral basilar ). negative: normal breath sounds, wheezing - CARDIOVASCULAR Cardiovascular: normal peripheral pulses, regular rate, rhythm, other (BP (193/ 101)). negative: bradycardia, tachycardia, irregularly irregular - GASTROINTESTINAL (ABDOMEN) Abdominal Exam: normal bowel sounds, non tender, soft, no organomegaly, no pulsatile mass. negative: guarding, rebound, tenderness - MUSCULOSKELETAL Extremity: normal range of motion, non-tender, normal gait, normal inspection, no calf tenderness, normal capillary refill, pelvis stable, pedal edema (2+ 2/[address] way up legs). negative: no pedal edema, deformity, erythema, inflammation - PSYCHIATRIC Psych/Mental Status: normal mood/affect, normal thought content, normal thought process, oriented x 3 Progress - PLAN OF CARE/RESULTS Progress/Plan/Lab Results: Vital Signs - 8 hr 10/18/16 02:12 Pulse Rate 74 Respiratory Rate 18 Blood Pressure 174/95 O2 Sat by Pulse Oximetry 97 Laboratory Results - last 24 hr 10/18/16 10/18/16 10/18/16 02:20 02:20 02:20 WBC 8.60 RBC 4.27 L Hgb 11.7 L Hct 36.4 L MCV 85.2 MCH 27.4 MCHC 32.1 L RDW Std Deviation 14.7 H Plt Count 240 MPV 10.9 H Immature Gran % (Auto) 0.2 Neut % (Auto) 73.8 Lymph % (Auto) 15.7 L [place] % (Auto) 7.0 Eos % (Auto) 2.6 Baso % (Auto) 0.7 Immature Gran # (Auto) 0.02 Neut # (Auto) 6.35 Lymph # (Auto) 1.35 [place] # (Auto) 0.60 H Eos # (Auto) 0.22 Baso # (Auto) 0.06 PT INR PTT (Actin FS) D-Dimer 3.42 H Sodium 140 Potassium 4.3 Chloride 102 Carbon Dioxide 24 L Anion Gap 14 BUN 32 H Creatinine 2.4 H Estimated GFR/1.73 m2 26 BUN/Creatinine Ratio 13 Glucose 114 H Calculated Osmolality 287 Calcium 7.9 L Magnesium 2.1 Total Bilirubin 0.29 AST 14 ALT 11 Alkaline Phosphatase 72 Creatine Kinase 139 Troponin T [id number] Pept Total Protein 6.9 Albumin 3.9 Globulin 3.0 Albumin/Globulin Ratio 1.3 10/18/16 10/18/16 10/18/16 02:20 02:20 02:20 WBC RBC Hgb Hct MCV MCH MCHC RDW Std Deviation Plt Count MPV Immature Gran % (Auto) Neut % (Auto) Lymph % (Auto) [place] % (Auto) Eos % (Auto) Baso % (Auto) Immature Gran # (Auto) Neut # (Auto) Lymph # (Auto) [place] # (Auto) Eos # (Auto) Baso # (Auto) PT 10.6 INR 1.01 PTT (Actin FS) 25.5 D-Dimer Sodium Potassium Chloride Carbon Dioxide Anion Gap BUN Creatinine Estimated GFR/1.73 m2 BUN/Creatinine Ratio Glucose Calculated Osmolality Calcium Magnesium Total Bilirubin AST ALT Alkaline Phosphatase Creatine Kinase Troponin T 0.011 Cgs-Y-Jvenfeztyet Pept 56751 H Total Protein Albumin Globulin Albumin/Globulin Ratio Orders Category Date Time Status Cardiac Monitoring DIRECTED Care 10/18/16 01:23 Active Oxygen Therapy- ED Nursing DIRECTED Care 10/18/16 01:23 Active Saline Loc NOW Care 10/18/16 01:23 Active CHEST-2 VIEWS [RAD] Stat Exams 10/18/16 01:23 Taken CBC WITH ELECTRONIC DIFF [HEME] Stat Lab 10/18/16 02:20 Completed CK PROFILE [SP CHEM] Stat Lab 10/18/16 02:20 Completed COMPREHENSIVE METABOLIC PANEL [CHEM] Stat Lab 10/18/16 02:20 Completed D-DIMER [CHEM] Stat Lab 10/18/16 02:20 Completed MAGNESIUM [CHEM] Stat Lab 10/18/16 02:20 Completed PRO B-NATRIURETIC PEPTIDE Stat Lab 10/18/16 02:20 Completed PROTIME WITH INR [COAG] Stat Lab 10/18/16 02:20 Completed PTT [COAG] Stat Lab 10/18/16 02:20 Completed TROPONIN T Stat Lab 10/18/16 02:20 Completed Aspirin Med 10/18/16 01:23 Discontinued 325 mg PO STAT STA Furosemide [Lasix] Med 10/18/16 01:37 Discontinued 40 mg IV NOW ONE Nitroglycerin Med 10/18/16 01:37 Discontinued 1 inch TOP NOW ONE EKG [EKG] Stat Ther 10/18/16 01:23 Ordered Transfer/Admit Order [TRANSFER] Routine Transfer 10/18/16 03:22 Ordered Result Diagrams: 10/18/16 02:20 10/18/16 02:20 - EKG 1 Time of EKG reading by physician:: 01:21 EKG Read and Signed by:: Brenden Jarquin EKG Interpretation (*Must complete 3 of following elements*): Abnormal (LVH with repolarization abnormality; Poor R wave progression; No signs of change from 05/02/2016) Rate: 79 Rhythm: NSR - XRAY 1 XRAY: Bilateral XRAY Study: Chest Impression: See EMR Report XRAY Interpretation: Cardiomegaly, otherwise unchanged from prior - Dr. Jarquin - CONSULTS/PCP/HOSPITALIST Notification #1 *Consult/PCP/Hospitalist*: Dr. Tinoco (Hospitalist) Time Discussed: 02:11 Consult Disposition: Admit Departure - Departure Date of Disposition Decision: 10/18/16 Time of Disposition Decision: 03:30 DIAGNOSIS: Congestive heart failure Qualifiers: Congestive heart failure type: unspecified congestive heart failure type Congestive heart failure chronicity: acute on chronic Qualified Code(s): I50.9 - Heart failure, unspecified Disposition: ADMITTED INPATIENT 09 Certified Medical Emergency: Emergent Condition: Fair Referrals and Follow-Ups: Tamika Ceron MD [Primary Care Provider] - - Critical Care Note This patient required my direct & personal management of CC.: No Attestation - Physician/ ELIZABETH Attestation Patient care was provided by Advanced Practice Provider:: No The physician spent face to face time with patient:: Yes Advanced Practice Provider documentation review:: Supervising physician onsite and consulted in the evaluation and care of this patient. The physician did have a face to face encounter with the patient. This chart was documented by the indicated scribe, (Severo Mccracken Scribe) and accurately reflects the services I performed and decisions made by me, Brenden Bull MD, as attested by the provider's signature.
--- NOTE | 2016-10-18 04:07 | HISTORY AND PHYSICAL ---
CHIEF COMPLAINT: Shortness of breath. HISTORY OF PRESENT ILLNESS: This is a 76-year-old, white male with a history of heart failure, possibly some COPD, who presents with shortness of breath for the last 3 days. He has longstanding lower extremity edema that has not clinically worsened per se. He initially started out with dyspnea on exertion but now it has progressed to even shortness of breath at rest. He also describes orthopnea but no bessie PND. He has been having significant issues with his dyspnea. He does report some chest pressure as well. Workup in the ER with concern over CHF and he was admitted for a CHF exacerbation, presumably a diastolic type. He had an echocardiogram in April which had an intact ejection fraction. He had moderate to severe aortic stenosis and he had moderate mitral regurgitation. PAST MEDICAL HISTORY: 1. CAD, status post CABG. 2. Diastolic heart failure. 3. Hypertension. 4. Diabetes. 5. Melioidosis. 6. GERD. PAST SURGICAL HISTORY: 1. He has had bypass. 2. Back surgery. 3. Right nephrectomy. 4. Cholecystectomy. FAMILY HISTORY: Reviewed and noncontributory. SOCIAL HISTORY: Former smoker, at least 20-30 pack years. None currently. No alcohol. Retired from the [employer]. REVIEW OF SYSTEMS: Ten point review of systems reviewed, otherwise negative. MEDICATIONS: He is on amlodipine 10, aspirin 81, Wellbutrin 150 b.i.d., doxycycline 100 b.i.d., Advair, Lasix 40 b.i.d., glimepiride 2 daily, [place] p.r.n., Isordil 20 t.i.d., lisinopril 10, Lopressor 50 b.i.d., omega-3 daily, Zofran p.r.n., Protonix 40 daily, Phenergan p.r.n., and Zoloft. PHYSICAL EXAMINATION: VITAL SIGNS: Blood pressure was 174/95, heart rate is 74, respiratory rate 18, temperature 98.1 degrees, 97% on room air. GENERAL: A well-developed male, in no respiratory distress. He is lying flat on his back without difficulty. HEENT: Pupils equal, round, reactive to light. Extraocular movements were intact. Ears, nose, and throat exam: He had moist mucous membranes. NECK: Supple. CARDIOVASCULAR: Regular rate and rhythm. PULMONARY: Rales at the bases with bronchial breath sounds at the bases. GI: Soft, nontender, obese. Bowel sounds positive. EXTREMITIES: No clubbing or cyanosis. LYMPHATICS: He had 2+ pitting edema up to mid abdi bilaterally. NEUROLOGICAL: Nonfocal. MUSCULOSKELETAL: Was 4-5 in all 4 extremities. LABORATORY DATA: White count normal at 8, hemoglobin and hematocrit 11 and 36. Creatinine 2.4. ProBNP was 10,043. Chest x-ray is pending but shows interstitial edema, cephalization of the vessels, cardiomegaly. Comparing to April, I do not think there has been extensive change. It does look like there is a little bit more crowding, possible effusion on the right side. Cardiomegaly is more pronounced. ASSESSMENT: A 76-year-old man with a history of congestive heart failure, presenting with diastolic heart failure exacerbation. PROBLEM LIST: 1. Diastolic heart failure exacerbation. We will continue diuresis with Lasix and follow closely. I will get a cardiology opinion just because he has significant aortic stenosis and I am not sure if that is progressing. We will obtain limited echo evaluate the valve. 2. Elevated D-dimer. He had this last admission. I am going to go ahead and order bilateral lower extremity Dopplers. He will likely need a V/Q scan once he is stabilized, although I think that is, again, probably going likely to be low yield for actual PE. 3. Diabetes. We will monitor his blood sugars closely, check A1c, continue sliding scale insulin. 4. Hypertension. We will adjust his medications accordingly. This may need to be adjusted. 5. Disposition, pending his clinical course. There is a component of chronic obstructive pulmonary disease so we will give him some breathing treatments while he is here and follow closely. cc: MD Dae Jay MD Sarah E. Styers, MD MTDD
[2016-10-18] MEDS ORDERED: ADVAIR 100/50 DISKUS INH PRN (04:30)
[2016-10-18] MEDS ORDERED: HYDROCODONE/APAP 7.5-325/15 ML PO PRN (04:30)
[2016-10-18] MEDS ORDERED: DUONEB (A & A) INH SCH (04:30)
[2016-10-18] MEDS ORDERED: PHENERGAN PO PRN (04:30)
[2016-10-18] MEDS: LASIX IV SCH ×2 (05:38→17:35)
[2016-10-18] MEDS: LOVENOX SUBQ SCH (05:39)
[2016-10-18] MEDS: HUMULIN R SUBQ SCH ×4 (06:02→22:26)
[2016-10-18] MEDS: ISORDIL PO SCH ×3 (09:09→17:35)
[2016-10-18] MEDS: DOXYCYCLINE PO SCH ×2 (09:09→22:26)
[2016-10-18] MEDS: FISH OIL CONCENTRATE PO SCH (09:09)
[2016-10-18] MEDS: NORVASC PO SCH (09:10)
[2016-10-18] MEDS: LOPRESSOR PO SCH ×2 (09:10→22:26)
[2016-10-18] MEDS: WELLBUTRIN SR PO SCH ×2 (09:10→22:25)
--- NOTE | 2016-10-18 10:44 | Diag Imaging Result Doc PS360 ---
CHEST-2 VIEWS - 10/18/2016 INDICATION: CP TECHNIQUE: COMPARISON: 04/24/2016 FINDINGS: Stable CABG changes. Stable cardiomegaly and pulmonary vascular congestion. There are worsening interstitial infiltrates in the lung bases bilaterally. There are curly B lines. There are trace pleural effusions. IMPRESSION: Cardiomegaly, interstitial pulmonary edema, trace pleural effusions. Electronically signed by Lionel Joshua 10/18/2016 10:41 AM
--- NOTE | 2016-10-18 11:42 | ECHO REPORT ---
ORDER DATE: 10/18/2016 PROCEDURE: Limited echocardiogram to assess for aortic stenosis. FINDINGS: 1. Normal left ventricular cavity size. Estimated ejection fraction of 60%. 2. Peak velocity across the aortic valve was 3.7 m/sec with a mean gradient of 29 mmHg with planimetry of 0.9 squared cm aortic valve area, a VTI valve area of 1 square cm. There is moderate to severe aortic stenosis associated with mild aortic regurgitation. There is left atrial enlargement. There is mild mitral regurgitation. 3. There is no pericardial effusion or obvious intracardiac mass or thrombus seen. cc: MD Cordell Stapleton MD
[2016-10-18] MEDS: APRESOLINE PO SCH ×2 (13:10→17:35)
--- NOTE | 2016-10-18 13:29 | CONSULTATION ---
DATE OF CONSULTATION: 10/18/2016 REASON FOR CONSULTATION: Cardiology was consulted for coronary artery disease, coronary artery bypass grafting, aortic stenosis, recurrent heart failure. HISTORY OF PRESENT ILLNESS: Mr. Sukumar Garcia is a 76-year-old gentleman who was admitted recently with heart failure and discharged home on 04/24/2016, comes with complaints of increasing shortness of breath over the last 3 days and came to the emergency room with symptoms suggestive of orthopnea. He denies chest pain. There were no palpitations. There was no dizziness or syncope. He has chronic pedal edema as well. His chest x-ray on 10/18/2016 revealed cardiomegaly, interstitial pulmonary edema with trace pleural effusions. He also when he was last admitted on 04/22/2016 had a V/Q scan which was negative for pulmonary embolism. There are no palpitations. There is no dizziness or syncope. PAST MEDICAL HISTORY: 1. Coronary artery disease status post coronary artery bypass grafting in the past. 2. Moderate to severe aortic stenosis. 3. History of right-sided nephrectomy with chronic kidney disease. Presently GFR 32, borderline states 3, stage 4. 4. Hypertension. 5. Diabetes. 6. Diastolic heart failure. ALLERGIES: He is allergic to influenza virus vaccine. HOME MEDICATIONS: Include Lasix 40 mg b.i.d., isosorbide 20 t.i.d., [place] vitamin D3, aspirin, lisinopril 10, glimepiride 2, Protonix 40, buspirone 150 b.i.d., sertraline 100, amlodipine 10, metoprolol 50 mg p.o. b.i.d. In the hospital he was given Lasix 40 mg 1 time dosage and started on 40 mg IV twice daily and doxycycline 100 mg p.o. b.i.d. REVIEW OF SYSTEMS: Fourteen point review of systems was done.GI: There is no history of nausea, vomiting, diarrhea. There is no history of hematemesis or melena. Central nervous system: There is no focal weakness to suggest CVA or TIA. Genitourinary: There is no dysuria or hematuria. Respiratory: In addition to the above symptoms, he she has noticed some cough. There is no hemoptysis. There are no fevers or chills. PHYSICAL EXAMINATION: Vital Signs: Blood pressure was 180/79. Cardiovascular system: Normal jugular venous pressure. First and second heart sounds were heard. There is an ejection systolic murmur. There was no S3 gallop. Respiratory System: Scattered bibasilar inspiratory crepitations. Abdomen: Soft, nontender. There was no guarding or rigidity. Bowel sounds were heard. Central nervous system: Alert. Was moving all 4 extremities. Extremities: Reveal mild pedal edema. LABORATORY EXAMINATION: Reveals hemoglobin 11.7, WBC 8.6, hematocrit 36, platelet count of 240,000. Sodium 140, potassium 4.3, BUN 32, creatinine 2.4. ProBNP 10,043. Troponin, CK, MB were negative. Chest x-ray revealed cardiomegaly, interstitial edema, trace bilateral pleural effusions. ASSESSMENT AND PLAN: Mr. Sukumar Garcia is a 76-year-old gentleman with a history of coronary artery disease, status post coronary artery bypass grafting at [facility] in the past, diabetes, hypertension, is admitted with recurrent diastolic heart failure. He was admitted here in April of 2016. His a V/Q scan then was negative and he had been doing well. Progressively his shortness of breath worsened and he is admitted for heart failure. Symptomatically since his admission he has improved. Denies chest pain. 1. Given his recurrent heart failure and moderate to severe aortic stenosis valve area 0.9 by planimetry 1 squared centimeter associated with mild aortic regurgitation, I think it would be better to do definitive testing with invasive coronary angiography. We will plan for this once he is more euvolemic. He has a single kidney status post nephrectomy as well. We will get nephrology involved to help us with this and his renal function. 2. Blood pressures were elevated and he also complains of having cough. The cough is likely related to heart failure. However, as far as medications are concerned, I would make the following changes. I will discontinue the lisinopril and put him on Cozaar. He is already on metoprolol 50 mg p.o. b.i.d. and amlodipine has been continued. We will continue his other medications. 3. For heart failure, he has been started on IV Lasix. We will continue the same medications. 4. Diabetes. Continue with the current medications he is on. Thank you for the consult. We will follow the hospital course. cc: Chauncey Kelly MD
--- NOTE | 2016-10-18 15:49 | PROGRESS NOTE ---
DATE: 10/18/2016 SUBJECTIVE: Today, Mr. Garcia refers to be doing relatively fine. Shortness of breath is progressively improving. OBJECTIVE: Vital signs: Blood pressure is 182/79, pulse of 77, respirations 24, temperature 97.9 degrees. General: Mr. Garcia is a 76-year-old male. He is in bed. He is slightly morbidly obese with a BMI of 42. HEENT: Mucosa is pink and moist. Anicteric. Acyanotic. Neck: Supple. Chest: Air entry is bilaterally reduced. There are some crepitations in the posterior lung ray. No accessory muscle use. Cardiovascular: Regular rate and rhythm. There is a 3/6 murmur radiating to both carotids. Abdomen: Soft. There is an old mid anterior wall abdominal with surgical scar consistent with previous surgery for a right nephrectomy. There is also a midline sternotomy scar. The abdominal examination, bowel sounds are present and there is no hepatosplenomegaly. Extremities: There may be a trace of pedal edema. SHEET FOLDER: Patient is awake, alert, oriented x4. There is no focal neurological deficit. LABORATORY DATA: Reviewed. Significant proBNP is over 10,000. Creatinine is 2.4. This is the patient's baseline. Current medications have also been reviewed. A limited echo which was done today shows ejection fraction of 60% with moderate to severe aortic stenosis area. The valve area is 0.9 cm2. ASSESSMENT: 1. Acute respiratory distress secondary to pulmonary edema. 2. Acute decompensation of diastolic heart failure. 3. Hypertension. 4. Diabetes mellitus. 5. Morbid obesity with sleep apnea. Patient uses CPAP at home. 6. Solitary kidney with chronic kidney disease, stage 4. 7. Moderate to severe aortic stenosis. 8. Nonocclusive bilateral chronic deep venous thromboses. I do not think this is causing any problem at this point. The patient is on aspirin. We will leave him on the aspirin. PLAN: So in general, I think Mr. Garcia is getting better. We will continue with the IV diuretics. We will also continue with the changes of the blood pressure medication. We will need to achieve a better blood pressure control. In terms of the moderate to severe aortic stenosis, the patient has been seen by Cardiology. There is a plan for a left heart catheterization once patient is more euvolemic, and then depending on the catheterization results, further recommendations will be done. With the patient having aortic stenosis which is symptomatic, I think the patient will need to be evaluated for a valve replacement. cc: Rob Simmons MD
[2016-10-18] MEDS ORDERED: PROTONIX PO SCH (21:00)
[2016-10-18] MEDS ORDERED: ASPIRIN EC PO SCH (21:00)
[2016-10-18] MEDS ORDERED: ZOLOFT PO SCH (21:00)
[2016-10-18] MEDS ORDERED: PRINIVIL PO SCH (21:00)
[2016-10-18] MEDS ORDERED: AMARYL PO SCH (21:00)
[2016-10-18] MEDS: DUONEB (A & A) INH PRN (22:30)
[2016-10-19] MEDS: LOVENOX SUBQ SCH (04:14)
[2016-10-19] MEDS: LASIX IV SCH (04:14)
[2016-10-19 05:52] LABS: HEMATOCRIT 32.2 % (42.0-52.0); HEMOGLOBIN 10.1 g/dL (14.0-18.0); MCH 27.7 PG (27-31); MCHC 31.4 g/dL (33-37); MCV 88.5 FL (81-99); MPV 11.2 FL (7.4-10.4); RBC 3.64 XMIL (4.7-6.1)
[2016-10-19 06:00] LABS: HEMOGLOBIN A1C 6.1 % (4.8-6.0)
[2016-10-19 06:08] LABS: CALCIUM 7.6 mg/dL (8.8-10.2); POTASSIUM 3.8 mmol/L (3.5-5.1)
[2016-10-19] MEDS: HUMULIN R SUBQ SCH ×3 (06:33→17:02)
--- NOTE | 2016-10-19 08:25 | Diag Imaging Result Doc PS360 ---
EXAM: LUNG SCAN / VQ HISTORY: dyspnea TECHNIQUE: Ventilation/perfusion lung scan, 41.2 mCi of technetium 99m DTPA aerosol for the ventilation portion the study and 5.8 mCi of technetium 99m MAA intravenously for the perfusion portion. COMMENT: There is no evidence of ventilation/perfusion mismatch. No absolute segmental or subsegmental perfusion defects are present. IMPRESSION: Low probability for pulmonary embolus. Electronically signed by Florencio Carballo 10/19/2016 8:22 AM
[2016-10-19] MEDS ORDERED: COZAAR PO SCH (09:00)
--- NOTE | 2016-10-19 09:36 | Diag Imaging Result Doc PS360 ---
EXAM: CHEST-2 VIEWS INDICATION: chf TECHNIQUE: 2 views COMPARISON: 10/18/2016 FINDINGS: Pulmonary venous congestion is approximately stable. Interstitial edema at the lower lung zones is very mild and has probably improved slightly. There are no new consolidations. Trace effusions are unchanged. Cardiac silhouette is stable. IMPRESSION: Suggestion of slight improvement of the mild interstitial edema bilaterally. Electronically signed by Willy Dill 10/19/2016 9:33 AM
[2016-10-19] MEDS: APRESOLINE PO SCH ×3 (09:58→17:12)
[2016-10-19] MEDS: LOPRESSOR PO SCH (09:58)
[2016-10-19] MEDS: NORVASC PO SCH (09:58)
[2016-10-19] MEDS: ISORDIL PO SCH ×3 (09:58→17:12)
[2016-10-19] MEDS: FISH OIL CONCENTRATE PO SCH (09:58)
[2016-10-19] MEDS: WELLBUTRIN SR PO SCH (09:58)
[2016-10-19] MEDS: DOXYCYCLINE PO SCH (09:58)
[2016-10-19] MEDS: DUONEB (A & A) INH PRN ×2 (10:47→15:24)
--- NOTE | 2016-10-19 14:27 | DISCHARGE SUMMARY ---
ADMISSION DATE: 10/18/2016 DISCHARGE DATE: 10/19/2016 HISTORY OF PRESENT ILLNESS: Presented with shortness of breath. He is a patient of Dr. Tamika Ceron. A 76-year-old male with history of heart failure, possible COPD. Presented with shortness of breath the last 3 days. Had long-standing lower extremity edema which has gotten worse clinically. Initially started with dyspnea on exertion but progressed to dyspnea at rest. Describes orthopnea but no bessie paroxysmal nocturnal dyspnea. He has been having significant issues in his dyspnea and so came to the emergency room. Apparently, he has history of congestive heart failure, presumably diastolic. Echocardiogram in April had intact normal ejection fraction by report. PAST MEDICAL HISTORY: 1. Coronary artery disease status post CABG. 2. Diastolic heart failure. 3. Hypertension. 4. Diabetes. 5. Gastroesophageal reflux disease. PAST SURGICAL HISTORY: He has had CABG bypass, back surgery, right nephrectomy, and cholecystectomy. HOSPITAL COURSE: So was admitted with diastolic heart failure where they diuresed him. Cardiology was asked to see. He did have an elevated D-dimer and concerned about him. Appears to have at least moderate to severe aortic stenosis. Solitary kidney. Dr. Kelly felt he needs to have a coronary angiogram. Lung scan, V/Q scan done yesterday was low probability for pulmonary emboli. He is feeling better. Breathing better. So in summary, history of coronary artery disease status post CABG bypass grafting at [facility] in the past, history of diabetes mellitus, hypertension, admitted with recurrent diastolic heart failure, admitted back here in April 2016 and again this admission. V/Q scan was negative. Has been doing fairly well with his progressive shortness of breath. Moderate to severe aortic stenosis. Valve area is 0.9 by planimetry and 1 squared cm associated with mild aortic regurgitation. [place] he would benefit from coronary angiographically and look at the valve as well. So plan is to send him to [facility]. On exam today, he feels good, comfortable. He was talking about going home. After discussed with Dr. Kelly, is going to go to [facility]. Will continue his current medications which are DuoNeb p.r.n., Norvasc 10 mg a day, aspirin 81 mg a day, Wellbutrin 150 mg b.i.d., doxycycline 100 mg b.i.d., Advair 500/50 b.i.d., Lasix 40 mg IV daily, Amaryl 2 mg p.o. at bedtime, Apresoline 25 mg t.i.d., Isordil 20 mg t.i.d., Cozaar 50 mg a day, Lopressor 50 mg b.i.d., [place] 3, [place] 6, [place] 9 fatty acid 1000 mg q.a.m., Protonix 40 mg p.o. at bedtime, and Zoloft 100 mg daily. Plan for transfer today. cc: Spencer Fulton MD
[2016-10-19 16:16] VITALS: BP 139/62
[2016-10-20] MEDS ORDERED: LASIX IV SCH (09:00)
--- NOTE | 2016-10-21 07:12 | Extremity Venous Study ---
PROCEDURE NAME: Venous U/S Bilateral Legs - 10/18/2016 REQUESTING PHYSICIAN: Dr. Tinoco ASBESTOS SURVEYOR: Reid INDICATIONS: Shortness of breath, edema of bilateral lower extremities. PROCEDURE: Bilateral lower extremity venous duplex and color flow imaging. EQUIPMENT: [employer] E9 ultrasound system 9LD transducer. FINDINGS: Images of the bilateral lower extremity venous systems were obtained in both sagittal and transverse planes. Doppler was used to evaluate veins for spontaneity, phasicity, respiratory excursion, and digital augmentation. Results: There appears to be a DVT noted in the right superficial femoral vein and popliteal vein and left popliteal vein, which may be chronic on the left. There is reflux noted in the right common femoral, right greater saphenous vein, right superficial femoral vein, right popliteal vein, left common femoral vein, and left greater saphenous vein. INTERPRETATION: DVT with flow noted in the right superficial femoral vein and popliteal vein. There appears to be a chronic-appearing DVT in the left popliteal vein. There is reflux noted in bilateral lower extremities as detailed above. By report from the ekg/ecg technician, this was notified to Dr. Simmons at 12:55 p.m. on 10/18/2016. cc: MD Cordell Lyon MD
== END 2016-10-19 18:01 | disposition short-term general hospital (02) ==
LOC: ED 01:21 → 4N 03:55 → SUATTDRO 03:55 → 4N 04:31
PROVIDERS: ATTEND Emergency Medicine

== ENCOUNTER 2018-07-28 05:00 | Inpatient (IN) ==
[2018-07-26 13:10] LABS: HEMATOCRIT 31.5 % (42.0-52.0); HEMOGLOBIN 9.8 g/dL (14.0-18.0); MCH 26.1 PG (27-31); MCHC 31.1 g/dL (33-37); MPV 10.7 FL (7.4-10.4); RBC 3.75 XMIL (4.7-6.1); RDW 15.6 % (11.5-14.5); WBC 5.58 X1000 (4.8-10.8)
--- NOTE | 2018-07-26 13:52 | EKG Report ---
Test Performed on : 07/26/2018 12:35:02 PM Test Reason : PAT Blood Pressure : / mmHG Vent. Rate : 071 BPM Atrial Rate : 071 BPM P-R Int : 108 ms QRS Dur : 172 ms QT Int : 494 ms P-R-T Axes : 000 -59 107 degrees QTc Int : 536 ms Suspect unspecified pacemaker failure Atrial-sensed ventricular-paced rhythm Abnormal ECG When compared with ECG of 27-OCT-2017 20:37, Electronic ventricular pacemaker has replaced Sinus rhythm. Confirmed by Kirstin CAZARES, Spencer Lock ([id number]) on 07/27/2018 9:43:53 AM
[2018-07-26 14:28] LABS: CALCIUM 7.7 mg/dL (8.8-10.2); CREATININE 2.7 mg/dL (0.7-1.2); POTASSIUM 3.6 mmol/L (3.5-5.1)
[2018-07-28] MEDS ORDERED: KEFZOL 1 GM/D5W 1 GM/50 ML IVPB ONE (08:23)
[2018-07-28] MEDS ORDERED: LR 1,000 ML ONE ×3 (08:23→16:35)
[2018-07-28] MEDS ORDERED: DIPRIVAN 1% ONE (12:38)
[2018-07-28] MEDS ORDERED: ZOFRAN ONE (12:38)
[2018-07-28] MEDS ORDERED: NORCURON ONE (12:38)
[2018-07-28] MEDS ORDERED: QUELICIN (DOSE) ONE (12:38)
[2018-07-28] MEDS ORDERED: SODIUM CHLORIDE 0.9% 10 ML ONE (12:38)
[2018-07-28] MEDS ORDERED: FENTANYL ONE (12:39)
[2018-07-28] MEDS ORDERED: DECADRON ONE (12:47)
[2018-07-28] MEDS ORDERED: NITROGLYCERIN 50 MG/D5W 50 MG/250 ML IV.SOLN ONE (13:38)
[2018-07-28] MEDS ORDERED: NEO-SYNEPHRINE ONE ×2 (13:38→14:01)
[2018-07-28] MEDS ORDERED: NS 1,000 ML ONE (13:47)
[2018-07-28] MEDS ORDERED: KEFZOL ONE (13:50)
[2018-07-28] MEDS ORDERED: XYLOCAINE 1% ONE (13:51)
[2018-07-28] MEDS ORDERED: HEPARIN ONE (13:51)
[2018-07-28] MEDS ORDERED: NS 500 ML ONE (13:51)
[2018-07-28] MEDS ORDERED: MARCAINE 0.25% PF/EPI 1:200,000 ONE (13:51)
[2018-07-28] MEDS ORDERED: HURRICAINE SPRAY (DOSE) ONE (13:53)
[2018-07-28] MEDS ORDERED: ROBINUL ONE (13:58)
[2018-07-28] MEDS ORDERED: SODIUM CHLORIDE 0.9% 20 ML ONE (13:59)
[2018-07-28] MEDS ORDERED: LUBRIFRESH PM OPH OINTMENT ONE (14:19)
[2018-07-28] MEDS: OFIRMEV 1000 MG/ISOTONIC SOLN 1,000 MG/100 ML BOTTLE ONE ×2 (16:40→17:17)
[2018-07-28] MEDS ORDERED: ULTRAM PO PRN (17:14)
[2018-07-28] MEDS ORDERED: ZOFRAN IV PRN (17:14)
[2018-07-28] MEDS ORDERED: LR 1,000 ML IV SCH (17:14)
[2018-07-28] MEDS: OFIRMEV 1000 MG/ISOTONIC SOLN 1,000 MG/100 ML BOTTLE IV SCH ×2 (19:00→23:34)
--- NOTE | 2018-07-28 19:39 | OPERATIVE NOTE ---
PROCEDURE DATE: 07/28/2018 PROCEDURE PERFORMED: Left carotid endarterectomy with patch angioplasty. SURGEON: Philippe Corona MD. JEWEL BEARING MAKER: Afua Fontenot MD, who assisted with exposure, and the patch angioplasty. PREOPERATIVE DIAGNOSIS: High-grade left internal carotid stenosis. POSTOPERATIVE DIAGNOSIS: High-grade left internal carotid stenosis. DESCRIPTION OF PROCEDURE: Satisfactory general endotracheal anesthesia was achieved. One sheet was placed underneath his shoulders. His head was turned to the right gently. The left side of the neck and upper anterior chest were prepped and draped in a sterile fashion. We marked the skin transversely, anesthetized the skin with 0.25 Marcaine with epinephrine and incised the skin, and carried our incision through the platysma. We then dissected along the anterior border of the sternocleidomastoid muscle. Crossing veins were ligated with 3-0 silk ties and divided. We dissected out the common carotid, surrounded with an umbilical tape. We dissected out the external, surrounded it along with the superior thyroid with a large vessel loop. 5000 units of heparin were given. We then dissected out the internal, small crossing veins were clipped and divided or ligated and divided. We reached the internal above the plaque and surrounded it with a small vessel loop. After the heparin had circulated for 5 minutes, we then occluded flow in the external with the vessel loops and clamped off the common. We used a profunda clamp on the internal. Then under 2.5 loupe magnification, incised the common, extended our incision with the Yepez scissors into the internal. We went through severe calcific plaque. We placed a 4 to 3 mm Sundt shunt. Clamp time was 2 minutes. We then used a [place] to raise the plaque out of the common. We transected it proximally with the Yepez scissors and then continued with the [place] to do an eversion endarterectomy of the external and then dissected up the internal until we got a nice taper point in the internal. We irrigated out the endarterectomized vessel, removed all leaflets I could identify, went ahead and tacked the intima with two 7-0 Prolene stitches. A bovine patch had been soaking. A 1 x 6 was used. We then constructed the suture the patch angioplasty using a 6-0 Prolene stitch. As we neared completion of the angioplasty, we back bled the external, removed the shunt from the internal and clamped it once again, and then flushed the common with antegrade flow and clamped it again. We then finished the patch angioplasty. We held the internal occluded, opened the external and the common and after 5 seconds opened the internal. Two additional stitches were used to achieve complete hemostasis of the patch angioplasty. We did use the Arixtra spray on the carotid as well. Satisfactory hemostasis was achieved. We placed a [place] drain within the wound. We brought it out inferior to the incision. We secured it there with a silk stitch. We then irrigated out the wound with Kefzol-impregnated saline. We proceeded to close the platysma with a running 3-0 Polysorb. We once again injected with 0.25 Marcaine with epinephrine subcutaneous tissue. We then closed the skin with 4-0 Polysorb subcuticular stitch. Telfa and a sterile OpSite was applied. He tolerated it well. Was awakening at the time of this dictation. cc: Philippe Corona MD
[2018-07-28] MEDS: ZOLOFT PO SCH (20:19)
[2018-07-28] MEDS: PROTONIX PO SCH (20:19)
[2018-07-28] MEDS: WELLBUTRIN SR PO SCH (20:19)
[2018-07-28] MEDS: AMARYL PO SCH (20:19)
[2018-07-29] MEDS: OFIRMEV 1000 MG/ISOTONIC SOLN 1,000 MG/100 ML BOTTLE IV SCH (05:20)
[2018-07-29] MEDS ORDERED: NORCO-5 PO PRN (08:18)
[2018-07-29] MEDS: ASPIRIN PO SCH (08:37)
[2018-07-29] MEDS: LASIX PO SCH (08:37)
[2018-07-29] MEDS: WELLBUTRIN SR PO SCH ×2 (08:37→20:49)
[2018-07-29] MEDS: APRESOLINE PO SCH (08:38)
[2018-07-29] MEDS: LR 1,000 ML IV SCH (10:06)
--- NOTE | 2018-07-29 10:21 | GENERAL SURGERY PROGRESS NOTE ---
DATE: 07/29/2018 Mr. Garcia is afebrile. Heart rate is 82. Blood pressure is 149/62. Neurologically, he is fine. His trachea is in the midline. He has had some ecchymosis no doubt secondary to his Plavix. He does not have a significant hematoma of his neck. The plan is to remove his drain. His ART line is already out. We will transfer him up to a regular room. He should be able to go home over the weekend. He should not resume his Plavix until he gets home. I have discussed that with him. I will see him in the office in a week. cc: Philippe Corona MD
[2018-07-29] MEDS: PROTONIX PO SCH (20:48)
[2018-07-29] MEDS: ZOLOFT PO SCH (20:48)
[2018-07-29] MEDS: AMARYL PO SCH (20:49)
[2018-07-30] MEDS: LASIX PO SCH (08:18)
[2018-07-30] MEDS: APRESOLINE PO SCH (08:18)
[2018-07-30] MEDS: ASPIRIN PO SCH (08:18)
[2018-07-30] MEDS: WELLBUTRIN SR PO SCH ×2 (08:18→20:53)
[2018-07-30] MEDS: LR 1,000 ML IV SCH (09:27)
--- NOTE | 2018-07-30 12:04 | PROGRESS NOTE ---
DATE: 07/30/2018 Mr. Sukumar Garcia is an 78-year-old white male patient of Dr. Corona, postop day 2, left carotid endarterectomy. He remains in the ICU but overall is doing well. He has had some oozing from his left neck incision and we changed the dressing today. He is hemodynamically stable. He is awake and alert without evidence of any stroke. We will transfer him to the floor as a room becomes available, but I will keep him because of ongoing oozing from his left neck incision. cc: MD Philippe Monzon MD
[2018-07-30] MEDS: PROTONIX PO SCH (20:53)
[2018-07-30] MEDS: ZOLOFT PO SCH (20:53)
[2018-07-30] MEDS: AMARYL PO SCH (20:53)
[2018-07-31 07:58] VITALS: BP 171/83
[2018-07-31] MEDS: APRESOLINE PO SCH (08:28)
[2018-07-31] MEDS: ASPIRIN PO SCH (08:28)
[2018-07-31] MEDS: WELLBUTRIN SR PO SCH (08:28)
[2018-07-31] MEDS: LASIX PO SCH (08:29)
--- NOTE | 2018-07-31 10:28 | DISCHARGE SUMMARY ---
ADMISSION DATE: 07/28/2018 DISCHARGE DATE: 07/31/2018 ADMITTING DIAGNOSIS: Left carotid stenosis. DISCHARGE DIAGNOSIS: Left carotid stenosis. PRINCIPAL PROCEDURE: Left carotid endarterectomy with patch angioplasty per Dr. Corona 07/28/2018. DISCHARGE DISABILITY: Full. DISCHARGE DISPOSITION: He will return to our outpatient offices later this week for followup. DISCHARGE MEDICATIONS: He is to return to his home medications. DISCHARGE DIET: Regular. HOSPITAL COURSE: Mr. Sukumar Garcia is an 78-year-old white male who had significant carotid stenosis and left carotid endarterectomy was recommended. He was admitted on the day of surgery and underwent a left carotid endarterectomy with patch angioplasty per Dr. Corona. 07/28/2018. Postoperatively he was hospitalized in the ICU for safety. He had no evidence of neurologic deficit. He remained hemodynamically stable. He did have some swelling involving his left neck but it was minimal. He had some skin bleeding from his incision. He was transferred to the floor on 07/30/2018 and it was felt safe to discharge him to his home on postop day 3. At discharge his wound was not bleeding. There was no increase in his swelling. There was no neurologic deficit and again he has remained hemodynamically stable. He is to be discharged home on his regular medications with followup with Dr. Croona later this week. DISCHARGE EXAM: His heart rate was 85, blood pressure 170/82, O2 saturation 93%. No work of breathing. He was afebrile on no antibiotics. He was ambulating easily in his room. cc: MD Philippe Monzon MD
== END 2018-07-31 09:37 | disposition home or self-care (01) | DRG 39 ==
LOC: SURHOLD 05:00 → ICU 17:12 → 4N 07-30 12:14
PROVIDERS: ADMIT Surgery; ATTEND Surgery
CPT/HCPCS: 80048; 82948; 85027; 88304; 93005; 93010; 94761; 94762; A9270; C1763; J0131; J0330; J0690; J1100; J1644; J2370; J2405; J3010; J7030; J7040; J7120; S0020; XXXXX